=== PATIENT | female | born 1990 | race Caucasian/White ===

== ENCOUNTER 2024-11-08 17:50 | Emergency (ER) | payer MEDICAID, SELFPAY ==
[2024-11-08 17:52] VITALS: BP 129/85
[2024-11-08 18:26] LABS: Urine Albumin Negative (Neg - Trace); Urine Bilirubin 2+ (Negative); Urine Character Clear (Clear); Urine Color Yellow; Urine Glucose Negative (Negative); Urine Ketone Negative (Negative); Urine Leukocyte Negative (Negative); Urine Nitrite Negative (Negative); Urine Occult Blood Negative (Negative); Urine Specific Gravity 1.015 (<1.030); Urine Urobilinogen Negative (Neg - 1+); Urine pH 6.5 (5.0-9.0)
[2024-11-08 18:47] LABS: COVID-19 Antigen Negative (Negative)
--- NOTE | 2024-11-08 19:00 | EDRN ---
Spoke with crisis they are going to suggest out patient for the patient, Dr. kay aware and will discharge patient.
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
== END 2024-11-08 20:30 | disposition home or self-care (01) ==
LOC: EMR 17:50
PROVIDERS: Registered Nurse; EMERGENCY PHYSICIAN Emergency Medicine
DX: F32.A Depression, unspecified (principal); F41.9 Anxiety disorder, unspecified; Z87.820 Personal history of traumatic brain injury
CPT/HCPCS: 99283; 81003; 87811